=== PATIENT | male | born 1990 ===

== ENCOUNTER 2018-04-27 02:37 | Inpatient (IN) | payer OTHER ==
[2018-04-27 03:24] LABS: Band 5 % (5-11); Hemoglobin 17.3 g/dL (14.0-18.0); Lymphocytes 11 % (21-51); MDiff Complete? YES; Mean Corpuscular HGB CONC 34.9 g/dL (32.0-36.0); Mean Corpuscular Hemoglobin 31.4 pg (27.0-31.0); Mean Corpuscular Volume 89.7 fl (80.0-94.0); Mean Platelet Volume 7.1 fL (7.4-10.4); Monocytes 8 % (0-10); Neutrophil 76 % (42-75); PLT Morphology Comment Appears Adequate; Platelet Count 378 thou/uL (130-400); RBC Distribution Width 12.3 % (11.5-14.5); Red Blood Cell (RBC) Count 5.52 mill/uL (4.70-6.10); White Blood Cell (WBC) Count 25.6 thou/uL (4.8-10.8)
[2018-04-27 03:25] LABS: ALT (SGPT) 26 U/L (8-55); AST (SGOT) 26 U/L (5-34); Albumin 5.7 g/dL (3.5-5.0); Alkaline Phosphatase 94 U/L (40-150); Anion Gap 24 mmol/L (10-20); BUN (Urea Nitrogen) 33 mg/dL (8.9-20.6); Bilirubin, Total 1.7 mg/dL (0.2-1.2); CK (CPK) 351 U/L (30-200); Calc. Creatinine Clearance 0 mL/min (70-130); Calcium 10.9 mg/dL (7.8-10.44); Carbon Dioxide 21 mmol/L (22-29); Chloride 96 mmol/L (98-107); Estimated GFR-MDRD 19; Globulin 2.9 g/dL (2.4-3.5); Glucose 92 mg/dL (70-105); Protein, Total 8.6 g/dL (6.0-8.3); Sodium 137 mmol/L (136-145)
[2018-04-27 04:29] LABS: Bilirubin Small (Negative); Blood, Urine Moderate (Negative); Clarity TURBID (Clear); Glucose, Urine (Dipstick) Negative (Negative); Leukocyte Negative (Negative); Nitrite Negative (Negative); Protein, Urine (Dipstick) 30 mg/dL (Neg-Trace); Specific Gravity, Urine 1.026 (1.002-1.036); Urobilinogen 0.2 mg/dL (0.2-1.0)
[2018-04-27 04:32] LABS: Bacteria/HPF None Seen HPF (None Seen)
[2018-04-27 04:36] LABS: Hyaline Casts/LPF >50 HYALINE CAST LPF (0-3 Hyaline); Pathc Cast-AUWi Flag 8.57 (0-2.49); Yeast-AUWi Flag 66.8 (0-25.0)
[2018-04-27 04:39] LABS: Amphetamine Detected (NotDetected); Barbiturates Screen Not Detected (NotDetected); Benzodiazepine Screen Not Detected (NotDetected); Cocaine Metabolite Screen Not Detected (NotDetected); Medtox Control Line Valid? VALID (VALID); Medtox Reader # READER 4; Methadone Not Detected (NotDetected); Methamphetamine Detected (NotDetected); Opiate Screen Not Detected (NotDetected); Oxycodone Screen Not Detected (NotDetected); Phencyclidine (PCP) Not Detected (NotDetected); THC/Cannabinoid Screen Not Detected (NotDetected); Tricyclic Screen Not Detected (NotDetected)
[2018-04-27 04:45] LABS: Other Casts/LPF None Seen LPF (0-3 Hyaline); Yeast-All Forms None Seen HPF (None Seen)
[2018-04-27 04:46] LABS: Renal Epithelial None Seen HPF (0-3); Transitional Epithelial NONE SEEN HPF (0-3)
--- NOTE | 2018-04-27 04:55 | PDOC.FPRHP ---
- History of Present Illness Chief Complaint: muscles aches History of Present Illness: 27 yo previously healthy male comes in with chief complaint of diffuse muscle and joint aches worse in the legs and lower back. He states he has been having aches since he was a child and it was attributed to growing pains. The pain got worse last night and he finally decided he should get checked out. He says the pain is "like a headache in my legs." It is a thobbing pressure rated at 8/10. The pain is made worse by work and made better by taking a warm bath. Patient works in the [employer]. States he is usually outside for 14 hours per day. He states he is usually good about drinking water throughout the day. ED Course: 3 L NS - Allergies/Adverse Reactions Allergies Allergy/AdvReac Type Severity Reaction Status Date / Time No Known Allergies Allergy Verified 04/27/18 05:04 - Home Medications Medication Instructions Recorded Confirmed Type Dextroamphetamine/Amphetamine 20 mg PO DAILY 04/27/18 04/27/18 History [Adderall Xr 20 mg Capsule] Dextroamphetamine/Amphetamine 10 mg PO DAILY 04/27/18 04/27/18 History [Adderall] - History PMHx: denies any chronic medical issues PSHx: hernia repair FHx: father psoriasis, stage IV kidney cance mother: fibromyalgia Social: 1ppd smoker for 17 years (started at age 10), no current alcohol use or drugs - Review of Systems General: reports: fatigue. denies: fever/chills, night sweats Eyes: denies: eye pain, vision changes ENT: denies: nasal congestion, rhinorrhea Respiratory: denies: cough, shortness of breath, exercise intolerance Cardiovascular: denies: chest pain, palpitation, orthopnea Gastrointestinal: denies: nausea, vomiting, diarrhea Genitourinary: denies: incontinence, dysuria Skin: reports: lesions (red spots on abdomen). denies: rashes Musculoskeletal: reports: pain, arthritis/arthralgias Neurological: denies: numbness, weakness Psychological: denies: anxiety, depression - Vital signs BP: 133/77 HR: 120 RR: 18 Tmax: 98.2 Pox: 98% on RA Wt: 77kg - Physical Exam Constitutional: NAD, awake, alert and oriented HEENT: normocephalic and atraumatic, PERRLA, EOMI, conjunctiva clear, MMM Neck: supple Heart: RRR, normal S1/S2, no murmurs/rubs/gallops, pulses present, no edema Lungs: CTAB, no respiratory distress Abdomen: soft, non-tender, bowel sounds present, other (10 red macules around umblicus, states they are chronic) Musculoskeletal: normal structure, ROM grossly normal Neurological: no focal deficit, CN II-XII intact Skin: no rash/lesions, capillary refill <2 seconds Heme/Lymphatic: no unusual bruising or bleeding Psychiatric: normal mood and affect FMR H&P: Results - Labs Result Diagrams: 04/27/18 02:48 04/27/18 02:48 Lab results: WBC 25.6 thou/uL (4.8-10.8) H 04/27/18 02:48 Hgb 17.3 g/dL (14.0-18.0) 04/27/18 02:48 Hct 49.5 % (42.0-52.0) 04/27/18 02:48 MCV 89.7 fl (80.0-94.0) 04/27/18 02:48 Plt Count 378 thou/uL (130-400) 04/27/18 02:48 Band Neuts % (Manual) 5 % (5-11) 04/27/18 02:48 Sodium 137 mmol/L (136-145) 04/27/18 02:48 Potassium 4.0 mmol/L (3.5-5.1) 04/27/18 02:48 Chloride 96 mmol/L (98-107) L 04/27/18 02:48 Carbon Dioxide 21 mmol/L (22-29) L 04/27/18 02:48 BUN 33 mg/dL (8.9-20.6) H 04/27/18 02:48 Creatinine 3.89 mg/dL (0.6-1.3) H 04/27/18 02:48 Glucose 92 mg/dL (70-105) 04/27/18 02:48 Calcium 10.9 mg/dL (7.8-10.44) H 04/27/18 02:48 Total Bilirubin 1.7 mg/dL (0.2-1.2) H 04/27/18 02:48 AST 26 U/L (5-34) 04/27/18 02:48 ALT 26 U/L (8-55) 04/27/18 02:48 Alkaline Phosphatase 94 U/L (40-150) 04/27/18 02:48 Creatine Kinase 351 U/L (30-200) H 04/27/18 02:48 Serum Total Protein 8.6 g/dL (6.0-8.3) H 04/27/18 02:48 Albumin 5.7 g/dL (3.5-5.0) H 04/27/18 02:48 Urine Ketones 15 mg/dL (Negative) H 04/27/18 04:10 Urine Blood Moderate (Negative) H 04/27/18 04:10 Urine Nitrite Negative (Negative) 04/27/18 04:10 Ur Leukocyte Esterase Negative (Negative) 04/27/18 04:10 Urine RBC 4-6 HPF (0-3) 04/27/18 04:10 Urine WBC 11-20 HPF (0-3) H 04/27/18 04:10 Ur Squamous Epith Cells 7-10 HPF (0-3) H 04/27/18 04:10 Urine Bacteria None Seen HPF (None Seen) 04/27/18 04:10 FMR H&P: A/P - Problem List (1) Heat exhaustion Current Visit: Yes Status: Acute Code(s): T67.5XXA - HEAT EXHAUSTION, UNSPECIFIED, INITIAL ENCOUNTER (2) Dehydration Current Visit: Yes Status: Acute Code(s): E86.0 - DEHYDRATION (3) SONIA (acute kidney injury) Current Visit: Yes Status: Acute Code(s): N17.9 - ACUTE KIDNEY FAILURE, UNSPECIFIED (4) Muscle ache Current Visit: Yes Status: Acute Code(s): M79.1 - MYALGIA - Plan # Heat Exhaustion, dehydration - works outside >14 hrs per day - urine appears concentrated, awaiting U/A - 3L Ns in ED, continue at 250 ml/hr - trend CK, check in 12 hours - check lactic acid, ESR - no tenderness to palpation of the calves or pain with flexion - check UDS # Muscle Aches - likely 2/2 above - family history of psoriasis - Also complains of joint pain, will check ROCHELLE - trend CK, suspect rhado may develop # Tachycardia - likely related to 1, will monitor # SONIA - Cr 3.89 - aggressively rehydrate - ordered Urine sodium and Cr - calculate FeNa - strict I/Os - Anion Gap is 24, suspect this is related to rehydration, recheck bmp at 1000, expect improvement with rehydration Diet: regular Code: full Fluids: NS 250 ml/hr Dispo: >48 hours FMR H&P: Upper Level - Pertinent history 27 yo M with no significant PMH presents with worsening lower extremity pain. Works in [employer] and noted that his muscles were aching more than usual during the day. Says he hydrates regularly during the day, but his pain was unable to be controlled by tylenol or ibuprofen so he came in. Of note, he appears to have had frequent muscle cramping for most of his life, but does not recall it ever being worked up in any way. Also states he frequently has joint pains. Pain usually improves with hot shower. FHx significant for father with psoriasis. - Pertinent findings PE: T: 98.2 P: 117 BP: 133/77 RR: 18 100% on RA Gen: [place] male in NAD HEENT: PERRL, EOMI, MMM, no lymphadenopathy or thyromegaly CV: tachycardic, regular rhythm no murmurs, distal pulses intact Pulm: CTAB, no wheezes or rhonchi Abd: soft, NT/ND, BS present, no masses Ext: no cyanosis or edema MSK: JEFFREY well, no joint swelling, LE muscles mildly TTP Neuro: CN 2-12 intact, normal sensation Skin: petechial rash over lower abdomen; erythematous, plaque-like rash over R anterior khan Psych: A&O x3, appropriate in conversation - Plan Date/Time: 04/27/18 0454 27 yo M here with muscle aches. 1) ARF: Admit to medical. Unclear etiology at this time, but suspect prerenal cause due to volume depletion as leading diagnosis. Continue aggressive IVF resuscitation, repeat BMP in 6 hrs to monitor electrolytes, check lactate as well. Will calculate FENa. 2) Heat exhaustion: CK not dramatically elevated, suspect this will continue to climb today. Continue to hydrate. 3) Arthralgias: Check ESR, ROCHELLE w/reflex. I, [Manuel Marc], have evaluated this patient and agree with findings/plan as outlined by architectural intern resident. Pertinent changes/additions are listed here.
[2018-04-27] MEDS ORDERED: Ondansetron ODT 4 MG TAB PO PRN (04:57)
[2018-04-27] MEDS ORDERED: Acetaminophen 325 MG TAB PO PRN (04:57)
[2018-04-27] MEDS ORDERED: Enoxaparin Sodium 40 MG/0.4 ML SYRINGE SC SCH (05:00)
[2018-04-27] MEDS: Sodium Chloride 0.9% 1,000 ML IV SCH ×5 (05:12→21:48)
[2018-04-27 05:21] VITALS: BMI 22.4
[2018-04-27 06:03] LABS: Lactic Acid 2.6 mmol/L (0.5-2.2)
[2018-04-27] MEDS: Nicotine 21 MG PATCH TD SCH (08:34)
[2018-04-27 10:41] LABS: Anion Gap 14 mmol/L (10-20); BUN (Urea Nitrogen) 27 mg/dL (8.9-20.6); Calc. Creatinine Clearance 69 mL/min (70-130); Carbon Dioxide 20 mmol/L (22-29); Chloride 107 mmol/L (98-107); Estimated GFR-MDRD 46; Glucose 75 mg/dL (70-105); Sodium 137 mmol/L (136-145)
--- NOTE | 2018-04-27 11:57 | HP ---
I have examined the patient. I have discussed the case with Dr. Giovanni Hearn and agree with his assessm ent and plan. HISTORY OF PRESENT ILLNESS: Mr. Muñiz is a 27-year-old white male patient who was admitted with di ffuse myalgias after having worked in a hot environment yesterday. He states that he normally; [facility], works in a hot environment. He was noted in the ER to have a mild elevation of his CPK and was a dmitted for fluids and pain control. He is also noted to have a positive urine drug screen. PHYSICAL EXAMINATION: VITAL SIGNS: Currently, his blood pressure is 140/60, his heart rate is now 90, respirations 16. He is afebrile. His room air pulse ox is 98%. GENERAL: He is awake, alert, oriented x3. He is in no distress except for some mild muscle aches. HEENT: Head is atraumatic, normocephalic. No erythema or exudate. NECK: Supple. CARDIAC: Heart rhythm regular, without gallop or murmur noted. LUNGS: Clear, without rales or wheezes. ABDOMEN: Flat and soft, without guarding, rebound or rigidity. NEUROLOGIC: He has no focal deficits. LABORATORY DATA: His admission CBC showed a white count of 25,600, hemoglobin 17.3, hematocrit 49.5 with an MCV of 89. His admission chemistry showed sodium of 137, potassium 4.0, chloride 96, bicarbo declan 21, anion gap 24, BUN is 33 with creatinine of 3.89. His admission creatinine kinase was 351 an d it dm to 846 seven hours later. ASSESSMENT: 1. Mild rhabdomyolysis. 2. Volume depletion causing #1. 3. Positive urine drug screen, possibly contributing to above. 4. Acute kidney injury secondary to volume depletion and possibly drug effect. PLAN: Admit for aggressive fluid resuscitation. Monitor electrolytes, kidney function and CK levels . We will have discussion with him about drug use and its potential effect on causing kidney damage as well.
[2018-04-27 13:04] LABS: Creatinine, Urine 221.43 mg/dL (63-166)
[2018-04-28] MEDS: Sodium Chloride 0.9% 1,000 ML IV SCH ×6 (01:27→19:38)
[2018-04-28 05:22] LABS: Lactic Acid 1.5 mmol/L (0.5-2.2)
[2018-04-28 05:24] LABS: #Basophils 0.1 thou/uL (0.0-0.2); #Eosinphils 0.1 thou/uL (0.0-0.7); #Lymphocytes 2.6 thou/uL (1.20-3.40); #Monocytes 0.8 thou/uL (0.11-0.59); #Neutrophils 3.8 thou/uL (1.40-6.50); %Basophils 0.8 % (0.0-1.0); %Eosinophils 1.9 % (0.0-10.0); %Lymphocytes 35.8 % (21.0-51.0); %Monocytes 10.3 % (0.0-10.0); %Neutrophils 51.2 % (42.0-75.0); Hemoglobin 12.7 g/dL (14.0-18.0); Mean Corpuscular HGB CONC 35.1 g/dL (32.0-36.0); Mean Corpuscular Hemoglobin 32.1 pg (27.0-31.0); Mean Corpuscular Volume 91.5 fl (80.0-94.0); Mean Platelet Volume 7.4 fL (7.4-10.4); Platelet Count 196 thou/uL (130-400); RBC Distribution Width 12.3 % (11.5-14.5); Red Blood Cell (RBC) Count 3.94 mill/uL (4.70-6.10); White Blood Cell (WBC) Count 7.4 thou/uL (4.8-10.8)
[2018-04-28 05:48] LABS: Anion Gap 9 mmol/L (10-20); BUN (Urea Nitrogen) 20 mg/dL (8.9-20.6); CK (CPK) 917 U/L (30-200); Calc. Creatinine Clearance 157 mL/min (70-130); Calcium 8.5 mg/dL (7.8-10.44); Carbon Dioxide 23 mmol/L (22-29); Chloride 113 mmol/L (98-107); Estimated GFR-MDRD Greater than 90; Glucose 92 mg/dL (70-105); Potassium 4.3 mmol/L (3.5-5.1); Sodium 141 mmol/L (136-145)
[2018-04-28] MEDS: Nicotine 21 MG PATCH TD SCH (08:04)
--- NOTE | 2018-04-28 09:02 | PDOC.FM ---
- Subjective Subjective: Pt resting comfortably with no specific complaint. Pt does not have joint pain this morning. He denies muscle pain, chest pain, SOB. There were no acute events over night. - Objective MAR Reviewed: Yes Vital Signs & Weight: Vital Signs (12 hours) Temp Pulse Resp BP Pulse Ox 04/28/18 08:00 97.8 F 88 12 04/28/18 07:19 97.8 F 88 12 121/66 99 04/28/18 00:06 97.9 F 85 18 138/86 99 04/27/18 21:12 97.6 F 86 18 135/83 97 Weight Admit Weight 77.337 kg Weight 82.554 kg I&O: 04/27/18 04/28/18 04/29/18 06:59 06:59 06:59 Intake Total 6419 Balance 6419 Result Diagrams: 04/28/18 04:22 04/28/18 04:22 Phys Exam - Physical Examination Constitutional: NAD HEENT: moist MMs, sclera anicteric Neck: no JVD, full ROM Respiratory: clear to auscultation bilateral Cardiovascular: RRR, no significant murmur Gastrointestinal: soft, non-tender, no distention Musculoskeletal: no edema Neurological: non-focal, moves all 4 limbs Psychiatric: normal affect, A&O x 3 Skin: no rash, normal turgor Dx/Plan (1) Elevated CK Status: Acute (2) Muscle ache Code(s): M79.1 - MYALGIA Status: Acute (3) SONIA (acute kidney injury) Code(s): N17.9 - ACUTE KIDNEY FAILURE, UNSPECIFIED Status: Resolved (4) Dehydration Code(s): E86.0 - DEHYDRATION Status: Resolved (5) Heat exhaustion Code(s): T67.5XXA - HEAT EXHAUSTION, UNSPECIFIED, INITIAL ENCOUNTER Status: Resolved - Plan Plan: Elevated CK - likely 2/2 severe dehydration and heat exhaustion. Kidney function is improving. I would expect recheck in am to down trend. - Continue IVF until CK improves. - There have been multiple non measured voids. I asked the patient to make sure to use the hat so that we could better monitor fluid status. Pt shows no signs over overload at this time. Muscle ache - possible mild rhabdo vs chronic - monitor ck. Auto immune work up pending - control w/tylenol SONIA - resolved, BUN 0.84 today Dehydration - resolved. Normal vitals. SONIA resolved. Pt has >6L in IVF Dispo: pt is doing well. Likely dc in am pending down trending CK
--- NOTE | 2018-04-28 11:32 | ADD-PRG ---
DATE OF SERVICE: 04/28/2018 This is an addendum to the note of Dr. Duc Santo. Mr. Muñiz clinically remains improved. His CPK continues to climb slightly, but still does not exc eed to 1000. He states his urine has remained a clear yellow color. He does have some white blood c ells on urinalysis and I suggest we check for GC, chlamydia, although he is asymptomatic. His renal function now demonstrates a BUN of 20, creatinine of 0.84. Yesterday, his BUN was 27. His creatinin e was 1.8 and the day before his creatinine was 3.89. His creatine kinase is now 917. We will nayeli nue to push IV fluids and monitor urine output as well as BUN and creatinine.
[2018-04-28 12:02] LABS: EliA Celiac New Method **** NEW METHOD ****; t-Transglutaminase (tTG) IgA Less than 0.1 EliAU/mL (<7 Negative); t-Transglutaminase (tTG) IgG Less than 0.6 EliAU/mL (<7 Negative)
[2018-04-28 12:32] LABS: ANA Symphony (Qualitative) Negative (Negative); dsDNA IgG Antibody Less than 0.5 IU/mL (<10 Negative)
[2018-04-29] MEDS: Sodium Chloride 0.9% 1,000 ML IV SCH ×2 (03:05→06:35)
[2018-04-29 04:29] LABS: Anion Gap 8 mmol/L (10-20); BUN (Urea Nitrogen) 9 mg/dL (8.9-20.6); CK (CPK) 457 U/L (30-200); Calc. Creatinine Clearance 173 mL/min (70-130); Calcium 8.4 mg/dL (7.8-10.44); Carbon Dioxide 26 mmol/L (22-29); Chloride 111 mmol/L (98-107); Estimated GFR-MDRD Greater than 90; Glucose 103 mg/dL (70-105); Potassium 3.6 mmol/L (3.5-5.1); Sodium 141 mmol/L (136-145)
--- NOTE | 2018-04-29 06:23 | PDOC.FM ---
- Subjective Subjective: 27 yo M admitted for heat exhaustion and dehydration. Resting comfortably this morning with no complaints. He denies muscle pain or headaches. There were no acute events over night - Objective MAR Reviewed: Yes Vital Signs & Weight: Vital Signs (12 hours) Temp Pulse Resp BP Pulse Ox 04/28/18 20:00 97.7 F 69 18 137/81 97 04/28/18 19:48 97.7 F 69 18 Weight Admit Weight 77.337 kg Weight 82.554 kg I&O: 04/27/18 04/28/18 04/29/18 06:59 06:59 06:59 Intake Total 6419 3100 Output Total 1100 Balance 6419 1999 Result Diagrams: 04/28/18 04:22 04/29/18 03:27 <Duc Santo - Last Filed: 04/29/18 06:58> - Objective Vital Signs & Weight: Weight Admit Weight 77.337 kg Weight 82.554 kg I&O: 04/29/18 04/30/18 05/01/18 06:59 06:59 06:59 Intake Total 3100 Output Total 1100 Balance 1999 Result Diagrams: 04/28/18 04:22 04/29/18 03:27 <Shemar Samano - Last Filed: 04/30/18 10:21> Phys Exam - Physical Examination Constitutional: NAD HEENT: moist MMs, sclera anicteric Neck: no JVD, full ROM Respiratory: clear to auscultation bilateral Cardiovascular: RRR, no significant murmur Gastrointestinal: soft, non-tender, no distention Musculoskeletal: no edema Neurological: non-focal, moves all 4 limbs Psychiatric: normal affect, A&O x 3 Skin: no rash, normal turgor <Duc Santo - Last Filed: 04/29/18 06:58> Dx/Plan (1) Elevated CK Status: Acute (2) Muscle ache Code(s): M79.1 - MYALGIA Status: Acute (3) SONIA (acute kidney injury) Code(s): N17.9 - ACUTE KIDNEY FAILURE, UNSPECIFIED Status: Resolved (4) Dehydration Code(s): E86.0 - DEHYDRATION Status: Resolved (5) Heat exhaustion Code(s): T67.5XXA - HEAT EXHAUSTION, UNSPECIFIED, INITIAL ENCOUNTER Status: Resolved - Plan Plan: Elevated CK - Value down 50% from yesterday as expected. No concern for rhabdomyolysis. - D/C fluids - Encourage continued PO fluid intake and close follow up with PCP Muscle ache - improved and at baseline chronic myalgia and arthralgia. - autoimmune work up negative, recommend further work up as outpta - control w/tylenol SONIA - resolved Dehydration - resolved Dispo: pt is doing well. Ready to dc today <Duc Santo - Last Filed: 04/29/18 06:58> Attending Addendum - Attending Addendum Date/Time: 04/30/18 1021 I personally evaluated the patient and discussed the management with Dr. Santo on 04/29. I agree with the History, Examination, Assessment and Plan documented above with any addition or exceptions noted below. Stable for discharge. <Shemar Samano - Last Filed: 04/30/18 10:21>
[2018-04-29 07:40] VITALS: BP 156/93; TEMP 98.1
[2018-04-29] MEDS: Nicotine 21 MG PATCH TD SCH (09:06)
--- NOTE | 2018-04-29 14:40 | DIS-2 ---
DATE OF ADMISSION: 04/27/2018 DATE OF DISCHARGE: 04/29/2018 ADMITTING ATTENDING: Norberto Cardoso M.D. DISCHARGE ATTENDING: Willis Jorgensen M.D. RESIDENT: Duc Santo D.O. CONSULTATIONS: None. PROCEDURES: None. ADMITTING DIAGNOSIS: Heat exhaustion or acute kidney injury secondary to dehydration and heat exhaus tion. SECONDARY DIAGNOSES: Elevated CK and muscle pain. DISCHARGE MEDICATIONS: Adderall-XR 10 mg p.o. daily. BRIEF HOSPITAL COURSE: A 27-year-old male who was admitted to the hospital secondary to an acute kid shaq injury suffered due to dehydration while working outside. Initial abnormalities include a creati nine of 3.89, white count of 25.6, lactic acid of 2.6, GFR of 19, calcium 10.9, bilirubin 1.7, creati nine kinase 351, urine creatinine of 221, and urine sodium of 39. UA significant for protein 30, ket ones 15, moderate blood, small bilirubin, 11-20 white cells, 7-10 squames and greater than 50 hyaline casts. UDS positive for amphetamines and methamphetamines. The patient was admitted and given intravenous fluids. The first 24 hours, the patient received appr oximately 6 liters in and his creatinine improved rapidly to a normal range of 0.84 in the first 24 h ours. However, there was increase of creatinine kinase is expected. This value reached his maximum at 917 on the second day of admission. The patient remained on intravenous fluids until CK trended d ownward. On the day of discharge, CK was 457 and GFR was greater than 90 and BUN was 0.76. On day o f discharge, there is extensive conversation regarding the importance of hydration especially conside ring the patient takes prescription stimulants and how these can lead to an increased likelihood of h eat-related pathology. Additionally, the patient complains of chronic muscle pain. There was some workup for autoimmune cau ses. ROCHELLE was negative. Double-stranded DNA was negative and a TTG was negative. Recommend further workup in outpatient setting. The patient will be discharged home. However, his PCP is in [place]. The patient will actually be l eaving to go back to [place] for work. I am ordering a repeat BMP and CK to be drawn in one week's time. Current plan is to have the labs drawn at a local national lab in an area where he is working and have those results sent back to his PCP for continued followup. DISCHARGE DISPOSITION: Stable. DISCHARGE INSTRUCTIONS: 1. Location: Home. 2. Diet: Regular. 3. Activity: Ad laurence with with focus on hydration while working outside. 4. Follow up with PCP in 1 week.
[2018-05-02 03:17] LABS: Chlamydia by PCR Not Detected (NotDetected); GC by PCR Not Detected (NotDetected)
== END 2018-04-29 11:02 | disposition home or self-care (01) | DRG 923 ==
LOC: ERS 02:37 → T4-A 04:07
PROVIDERS: ADMIT Family Medicine; ATTEND Family Medicine
DX: T67.5XXA Heat exhaustion, unspecified, initial encounter (principal); M62.82 Rhabdomyolysis; N17.9 Acute kidney failure, unspecified; E86.0 Dehydration; X30.XXXA Exposure to excessive natural heat, initial encounter; M79.1 Myalgia; R00.0 Tachycardia, unspecified
CPT/HCPCS: 36415; 80048; 80053; 80306; 81003; 81015; 82550; 82570; 83516; 83605; 83874; 84300; 85025; 85652; 86038; 86225; 87491; 87591; 93005; 96360; 96361; A4216; G8978-GP-CH; G8979-GP-CH; G8980-GP-CH; J1650